=== PATIENT | female | born 1995 | race Caucasian/White ===

== ENCOUNTER → 2016-11-04 | Outpatient (CLI) | payer BC ==
[2016-11-04 09:48] LABS: HCT 37.5 % (34.0-46.0); HDW 2.58; HGB 13.1 gm/dL (11.4-16.0); MCH 28.8 pg (25.0-35.0); MCHC 34.9 g/dL (31.0-37.0); MCV 82.7 fL (80.0-100.0); Mean Platelet Volume 7.4; RBC 4.53 m/uL (3.80-5.40); RDW 12.4 % (11.5-15.5); WBC 8.8 k/uL (3.8-10.6)
--- NOTE | 2016-11-04 09:50 | US ---
EXAMINATION TYPE: US OB <=14 wks transvag DATE OF EXAM: 11/04/2016 8:41 AM COMPARISON: NONE CLINICAL HISTORY: Z36 CONFIRM DATES. UNSURE DATES EXAM PERFORMED: Transvaginal (TV) and Transabdominal (TA) EXAM MEASUREMENTS: GESTATIONAL AGE / DATING Physician Established: not established Dates by LMP: (11 weeks/6 days) EDC: 05/20/2017 Dates by First Scan: no prior Dates by Current Scan for: (11 weeks/3 days) EDC: 05/23/2017 MATERNAL ANATOMY Uterus: 15.8 x 5.3 x 8.2 cm Right Ovary: 2.9 x 1.4 x 1.7 cm Left Ovary: 3.1 x 1.7 x 2.2 cm Post CDS / Adnexa: wnl Presence of free fluid: no Presence of corpus luteal cyst: no Presence of subchorionic bleed: no GESTATION / SURVEY CRL: 4.4 (11 weeks/1 days) MSD: 4.9 (10 weeks/4 days) Yolk Sac (normal less than 6mm): not seen anterior placenta Heart Rate: 164 bpm Rhythm: Normal IUP: Viable IUP Date of LMP: 08/13/2016 Beta HcG (if available): NA TECHNOLOGIST IMPRESSION: viable IUP based on this examination, anterior placenta low lying IMPRESSION: VIABLE INTRAUTERINE GESTATION WITH A GESTATIONAL AGE OF 11 WEEKS 3 DAYS +/- 7 DAYS. ESTIMATED DATE OF CONFINEMENT BASED ON THIS EXAMINATION IS 05/23/2017. PLEASE NOTE THAT THE PLACENTA IS LOW-LYING AT THIS TIME. FURTHER FOLLOW-UP IN THE THIRD TRIMESTER WOU LD BE RECOMMENDED IN ORDER TO REASSESS PLACENTAL POSITIONING.
[2016-11-04 10:22] LABS: Glucose 94 mg/dL (74-99); Non-African American GFR(MDRD) >60 (>60 ml/min/1.73 sqM)
[2016-11-04 10:41] LABS: Hepatitis B Surface Ag Index 0.07
[2016-11-05 04:46] LABS: Toxoplasma Antibody (IgG) <3.0 IU/mL (<7.2)
[2016-11-06 07:25] LABS: HIV-1/HIV-2 Ab Screen NONREAC (NON REAC)
== END | disposition home or self-care (01) ==
LOC: RADUSWWP 08:06
PROVIDERS: ATTEND Obstetrics & Gynecology
DX: O44.41 Low lying placenta NOS or without hemorrhage, first trimester (principal); Z3A.11 11 weeks gestation of pregnancy
CPT/HCPCS: 36415; 76801; 76817; 82565; 82947; 85027; 86762; 86777; 86778; 86780; 86850; 86900; 86901; 87340; 87389

== ENCOUNTER → 2016-12-24 | Outpatient (CLI) | payer BC ==
--- NOTE | 2016-12-24 11:33 | US ---
EXAMINATION TYPE: US OB anatomy transabd DATE OF EXAM: 12/24/2016 10:25 AM COMPARISON: US in PACS HISTORY: Large for Dates O36.62X0 Anatomy Scan TECHNIQUE: Transabdominal (TA) EXAM MEASUREMENTS: GESTATIONAL AGE / DATING Physician Established: (19 weeks/0 days) EDC: 05/20/2017 Dates by LMP: (19 weeks/0 days) EDC: 05/20/2017 Dates by First Scan: (18 weeks/4 days) EDC: 05/23/2017 Dates by Current Scan for: (18 weeks/2 days) EDC: 05/25/2017 SURVEY IUP: Single PLACENTA: Anterior PREVIA: Marginal MITESH: 11.1 cm Normal CERVICAL LENGTH (transabdominal: norm > 3.0cm): 3.9 cm BIOMETRY PRESENTATION: Vertex BPD: 4.0 cm 18 weeks / 1 days HC: 15.5 cm 18 weeks / 3 days AC: 12.9 cm 18 weeks / 3 days FL: 2.7 cm 18 weeks / 2 days ESTIMATED WEIGHT IN GRAMS: 236 grams ESTIMATED WEIGHT IN LBS/OZS: 0 lbs. 8 oz. WEIGHT PERCENTAGE BASED ON ESTABLISHED DATE: 14.9 % HC/AC: 1.21 Normal FL/AC: 21 Normal HEART RATE: 139 bpm RHYTHM: Normal ANATOMY SEEN (within normal limits): * Lateral Vent (< 1 cm) 0.6 cm * Cisterna Magna (< 1.1 cm) 0.4 cm * Nuchal Fold (< 0.6 cm) 0.3 cm * Cerebellum (varies with age) 1.9 cm Choroid Plexus (bilateral) Midline Falx Cavus Septi Pellucidi Four Chamber Heart Outflow tracts: LVOT/RVOT Stomach Situs Nose / Lips Diaphragm Kidneys (bilateral) Bladder Cord Insert Three Vessel Cord Longitudinal Spine Transverse Spine Arms (bilateral) Legs (bilateral) MATERNAL WALL MEASUREMENT: 5.1 cm from skin to anterior uterine wall (if exam limited due to body waite bitus). Single, viable IUP, Large pt body habitus, Anatomy visualized appeared wnl IMPRESSION: LEGER FETUS PRESENT IN A VERTEX LIE WITH A GESTATIONAL AGE OF 18 WEEKS 2 DAYS +/- 12 DAYS. ESTIMA MAGED DATE OF CONFINEMENT BASED ON THIS EXAMINATION IS 05/25/2017.
== END | disposition home or self-care (01) ==
LOC: RADUSWWP 09:40
PROVIDERS: ATTEND Obstetrics & Gynecology
DX: O36.62X0 Maternal care for excessive fetal growth, second trimester, not applicable or unspecified (principal); Z3A.18 18 weeks gestation of pregnancy
CPT/HCPCS: 76811

== ENCOUNTER → 2017-02-14 | Outpatient (CLI) | payer BC ==
[2017-02-14 10:00] LABS: CH 28.2; CHCM 32.9; HCT 34.4 % (34.0-46.0); HDW 2.73; HGB 11.3 gm/dL (11.4-16.0); MCH 28.3 pg (25.0-35.0); MCHC 32.9 g/dL (31.0-37.0); MCV 86.1 fL (80.0-100.0); Mean Platelet Volume 6.8; RDW 13.6 % (11.5-15.5); WBC 8.8 k/uL (3.8-10.6)
== END | disposition home or self-care (01) ==
LOC: LABWHC1 08:27
PROVIDERS: ATTEND Obstetrics & Gynecology
DX: Z34.02 Encounter for supervision of normal first pregnancy, second trimester (principal); Z3A.00 Weeks of gestation of pregnancy not specified
CPT/HCPCS: 36415; 82950; 85027

== ENCOUNTER → 2017-02-22 | Outpatient (CLI) | payer BC | END | disposition home or self-care (01) | LOC: LABWHC1 07:32 | PROVIDERS: ATTEND Obstetrics & Gynecology | DX: O24.419 Gestational diabetes mellitus in pregnancy, unspecified control (principal); Z3A.00 Weeks of gestation of pregnancy not specified | CPT/HCPCS: 36415; 82951; 82952 ==

== ENCOUNTER → 2017-03-01 | Outpatient (CLI) | payer BC | END | disposition home or self-care (01) | LOC: LABWHC1 07:31 | PROVIDERS: ATTEND Obstetrics & Gynecology | DX: O99.810 Abnormal glucose complicating pregnancy (principal); Z3A.00 Weeks of gestation of pregnancy not specified | CPT/HCPCS: 36415; 82951; 82952 ==

== ENCOUNTER → 2017-03-08 | Outpatient (CLI) | payer BC | END | disposition home or self-care (01) | LOC: LABWHC1 14:06 | PROVIDERS: ATTEND Obstetrics & Gynecology | DX: O24.419 Gestational diabetes mellitus in pregnancy, unspecified control (principal); Z3A.00 Weeks of gestation of pregnancy not specified | CPT/HCPCS: 36415; 82947; 83036 ==

== ENCOUNTER 2017-05-13 06:00 | Inpatient (IN) | payer BC ==
[2017-05-13] MEDS ORDERED: METHYLERGONOVINE 0.2 MG/ML 1 ML AMP IM PRN (06:26)
[2017-05-13] MEDS ORDERED: CARBOPROST TROMETHAMINE 250 MCG/ML 1 ML AMP IM PRN (06:26)
[2017-05-13] MEDS ORDERED: LIDOCAINE 1% (PF) 10 MG/ML (30 ML SDV) SQ PRN (06:26)
[2017-05-13] MEDS ORDERED: OXYTOCIN 10 UNIT/ML 1 ML VIAL IM PRN (06:26)
[2017-05-13] MEDS ORDERED: TERBUTALINE 1 MG/ML VIAL SQ PRN (06:26)
[2017-05-13 06:33] LABS: Basophils % (A) 0 %; CH 29.5; CHCM 35.5; Eosinophils # (A) 0.3 k/uL (0-0.7); Eosinophils % (A) 3 %; HCT 37.4 % (34.0-46.0); HDW 3.02; HGB 12.8 gm/dL (11.4-16.0); Luc # (Auto) 0.26; Luc % (Auto) 3; Lymphocytes % (A) 21 %; MCH 28.6 pg (25.0-35.0); MCHC 34.2 g/dL (31.0-37.0); MCV 83.7 fL (80.0-100.0); Mean Platelet Volume 7.7; Monocytes # (A) 0.6 k/uL (0-1.0); Monocytes % (A) 7 %; Neutrophils # (A) 6.2 k/uL (1.3-7.7); Neutrophils % (A) 66 %; RBC 4.46 m/uL (3.80-5.40); RDW 14.7 % (11.5-15.5); WBC 9.4 k/uL (3.8-10.6); WBC (Perox) 9.18
[2017-05-13] MEDS: OXYTOCIN 20 UNITS/1000 ML NS 1,000 ML IV SCH (06:36)
[2017-05-13] MEDS: LACTATED RINGERS 1,000 ML IV SCH ×2 (06:40→11:08)
[2017-05-13 06:51] VITALS: BMI 43.9
[2017-05-13] MEDS ORDERED: BUPIVACAINE (PF) 0.25% 30 ML VIAL ONE (10:12)
[2017-05-13] MEDS ORDERED: fentaNYL (PF) 50 MCG/ML 5 ML AMP ONE (10:12)
[2017-05-13] MEDS ORDERED: SODIUM CHLORIDE 0.9% 100 ML BAG ONE (10:12)
[2017-05-13] MEDS ORDERED: ZOLPIDEM 5 MG TAB PO PRN (13:36)
[2017-05-13] MEDS ORDERED: HYDROCORTISONE 2.5% RECTAL CREAM 30 GM TUBE RECTAL PRN (13:36)
[2017-05-13] MEDS ORDERED: WITCH HAZEL 1 EACH MED..PAD TOPICAL PRN (13:36)
[2017-05-13] MEDS ORDERED: diphenhydrAMINE 50 MG CAP PO PRN (13:36)
[2017-05-13] MEDS ORDERED: LANOLIN CREAM 5 GM TUBE TOPICAL PRN (13:36)
[2017-05-13] MEDS ORDERED: Acetaminophen-Codeine 300-30mg TAB PO PRN (13:36)
[2017-05-13] MEDS ORDERED: SIMETHICONE 80 MG CHEWABLE PO PRN (13:36)
[2017-05-13] MEDS ORDERED: diphenhydrAMINE 25 MG CAP PO PRN (13:36)
[2017-05-13] MEDS ORDERED: diphenhydrAMINE 50 MG/ML 1 ML VIAL IVP PRN ×2 (13:36)
[2017-05-13] MEDS ORDERED: BENZOCAINE/MENTHOL SPRAY 1 GM/SPRAY AEROSOL TOPICAL PRN (13:36)
[2017-05-13] MEDS ORDERED: ACETAMINOPHEN TAB 325 MG TAB PO PRN (13:36)
[2017-05-13] MEDS ORDERED: OXYTOCIN 20 UNITS/1000 ML NS 1,000 ML IV SCH (13:45)
[2017-05-13] MEDS: SENNOSIDES-DOCUSATE SODIUM 1 EACH TAB PO SCH (20:42)
[2017-05-13] MEDS: IBUPROFEN 600 MG TAB PO PRN (20:43)
--- NOTE | 2017-05-14 00:24 | P.HPOB ---
History of Present Illness H&P Date: 05/13/17 Chief Complaint: Induction of labor 22 year old presents at 39 weeks for induction of labor. Cervix is 6 cm dilated, 70% effaced, 0 station. She got dimple. heart tones 140- 145 with moderate variability and reactive. Review of Systems All systems: negative Constitutional: Denies chills, Denies fever Eyes: denies blurred vision, denies pain Ears, nose, mouth and throat: Denies headache, Denies sore throat Cardiovascular: Denies chest pain, Denies shortness of breath Respiratory: Denies cough Gastrointestinal: Denies abdominal pain, Denies diarrhea, Denies nausea, Denies vomiting Genitourinary: Denies dysuria, Denies hematuria Musculoskeletal: Denies myalgias Integumentary: Denies pruritus, Denies rash Neurological: Denies numbness, Denies weakness Psychiatric: Denies anxiety, Denies depression Endocrine: Denies fatigue, Denies weight change Past Medical History Past Medical History: No Reported History Additional Past Medical History / Comment(s): Obstetric history: This is her first . She's had care with me since 10 weeks gestation. Blood type B positive, antibodies negative, rubella nonimmune, treponema antibody negative, hepatitis B negative, HIV negative, toxoplasmosis negative. Abnormal 1 hour, normal hemoglobin A1c and normal blood sugars as she was unable to keep three-hour Glucola down. GBS is negative. History of Any Multi-Drug Resistant Organisms: None Reported Past Surgical History: Tonsillectomy Additional Past Surgical History / Comment(s): eye surgery (cyst removal) Past Anesthesia/Blood Transfusion Reactions: No Reported Reaction Past Psychological History: No Psychological Hx Reported Smoking Status: Never smoker Past Alcohol Use History: None Reported Past Drug Use History: None Reported - Past Family History Mother Family Medical History: No Reported History Medications and Allergies Home Medications Medication Instructions Recorded Confirmed Type Loratadine [Claritin] 10 mg PO PRN 05/13/17 History Pnv,Calcium 72/Iron/Folic Acid 1 tab PO DAILY 05/13/17 05/13/17 History [ Plus Tablet] Allergies Allergy/AdvReac Type Severity Reaction Status Date / Time amoxicillin [Amoxicillin] Allergy Unknown Verified 05/13/17 06:23 clindamycin Allergy Anaphylaxis Verified 05/13/17 06:23 Penicillins Allergy Unknown Verified 05/13/17 06:23 sulfamethoxazole Allergy Rash/Hives Verified 05/13/17 06:23 [From Bactrim] trimethoprim [From Bactrim] Allergy Rash/Hives Verified 05/13/17 06:23 Exam Osteopathic Statement: *. No significant issues noted on an osteopathic structural exam other than those noted in the History and Physical/Consult. - Vital Signs Vital signs: Vital Signs Temp Pulse Resp BP Pulse Ox 05/13/17 20:00 98.2 F 82 16 115/65 05/13/17 15:43 97.5 F L 75 16 117/64 05/13/17 15:13 98.2 F 88 16 115/62 05/13/17 14:43 81 16 113/63 05/13/17 14:28 98.7 F 80 16 105/57 05/13/17 14:13 90 16 109/56 05/13/17 13:58 81 16 114/60 05/13/17 13:43 97.2 F L 106 H 16 131/73 05/13/17 06:42 96.1 F L 97 18 133/78 97 Intake and Output 05/13/17 05/13/17 05/14/17 14:59 22:59 06:59 Output Total 150 Balance -150 Output: Estimated Blood Loss 150 Other: # Voids 1 1 Heart: Regular rate and rhythm Lungs: Clear to auscultation bilaterally Abdomen: Soft, nontender Extremities: Negative Homans sign Results Result Diagrams: 05/13/17 06:25 Assessment and Plan (1) Normal labor Status: Acute Plan: 1. Admit to family place 2. Pitocin and amniotomy for induction of labor 3. Anticipate normal vaginal delivery
--- NOTE | 2017-05-14 00:27 | P.PROBDLV ---
Vaginal Delivery Note - . Vaginal Delivery Note: 22-year-old presents at 39 weeks' gestation for induction of labor. Her cervix is 6 cm dilated, 70% effaced, 0 station. She's not dimple. heart tones 140 145 with moderate variability and reactive. Pitocin was started. Amniotomy was performed at 9:02 AM and clear fluid noted. She did become uncomfortable and got an epidural. Her cervix was completely dilated at 12:35 PM. She pushed, delivered a viable female over intact perineum under epidural anesthesia at 1319. Head delivered OA, anterior shoulder which was the left shoulder delivered gentle downward traction followed by posterior shoulder and rest of body. Nose and mouth bulb suctioned, cord clamped and cut , infant placed on mother's abdomen. Apgars 9, 9, weight 7 lbs. 4 oz. Placenta delivered spontaneously, intact with three-vessel cord at 1323. Vagina , cervix, and perineum were inspected. First-degree midline laceration was repaired with 3-0 Vicryl. Estimated blood loss 150 mL. Mother and baby in stable condition.
[2017-05-14] MEDS: Acetaminophen-Codeine 300-30mg TAB PO PRN (02:17)
--- NOTE | 2017-05-14 09:25 | P.PNOBGVD ---
Subjective - Subjective Principal diagnosis: S/P NVD PPD #1 Interval history: Pt seen and examined denies nausea, vomiting, chest pain, shortness of breath or calf pain. Patient reports: Reports appetite normal, Reports voiding normally, Reports pain well controlled, Reports ambulating normally : doing well Objective - Latest Vital Signs Latest vital signs: Vital Signs Temp Pulse Resp BP 05/14/17 00:00 98.6 F 83 16 117/69 05/13/17 20:00 98.2 F 82 16 115/65 05/13/17 15:43 97.5 F L 75 16 117/64 05/13/17 15:13 98.2 F 88 16 115/62 05/13/17 14:43 81 16 113/63 05/13/17 14:28 98.7 F 80 16 105/57 05/13/17 14:13 90 16 109/56 05/13/17 13:58 81 16 114/60 05/13/17 13:43 97.2 F L 106 H 16 131/73 Intake and Output 05/13/17 05/14/17 05/14/17 22:59 06:59 14:59 Other: # Voids 1 1 - Exam Lungs: bilateral: normal Chest: Normal S1, Normal S2 Extremities: Present: normal Abdomen: Present: normal appearance, soft Uterus: Present: normal, firm Assessment and Plan (1) Normal labor Current Visit: Yes Status: Resolved Code(s): O80 - ENCOUNTER FOR FULL-TERM UNCOMPLICATED DELIVERY; Z37.9 - OUTCOME OF DELIVERY, UNSPECIFIED SNOMED Code(s ): 36043027 (2) Normal vaginal delivery Narrative/Plan: 1. cont pp care Current Visit: Yes Status: Acute Code(s): O80 - ENCOUNTER FOR FULL-TERM UNCOMPLICATED DELIVERY SNOMED Code(s): 63220152
[2017-05-14] MEDS: IBUPROFEN 600 MG TAB PO PRN ×2 (09:29→17:55)
[2017-05-14] MEDS: SENNOSIDES-DOCUSATE SODIUM 1 EACH TAB PO SCH ×2 (11:50→20:17)
[2017-05-15] MEDS: Acetaminophen-Codeine 300-30mg TAB PO PRN (00:16)
[2017-05-15] MEDS: OXYTOCIN 20 UNITS/1000 ML NS 1,000 ML IV SCH (01:41)
[2017-05-15] MEDS: SENNOSIDES-DOCUSATE SODIUM 1 EACH TAB PO SCH (09:11)
[2017-05-15 09:38] VITALS: BP 122/58; PULSE 89; RESP 18; TEMP 97.6
[2017-05-15] MEDS ORDERED: MEASLES-MUMPS-RUBELLA VACC/PF 12,500 UNIT/0.5 ML VIAL SQ ONE (09:49)
--- NOTE | 2017-05-15 10:11 | P.DS ---
Providers Date of admission: 05/13/17 06:07 Expected date of discharge: 05/15/17 Attending physician: Gloria Oliver Primary care physician: Stated None - Discharge Diagnosis(es) (1) Normal labor Current Visit: Yes Status: Resolved (2) Normal vaginal delivery Current Visit: Yes Status: Acute Hospital Course: Patient presented for induction of labor. She underwent normal vaginal delivery. Her course was uncomplicated. She denies nausea, vomiting , chest pain, shortness of breath or calf pain. She is ambulating and voiding without difficulty and tolerating regular diet. She'll be discharged home day #2 in stable condition to follow-up with me in 6 weeks. Plan - Discharge Summary New Discharge Prescriptions: No Action Pnv,Calcium 72/Iron/Folic Acid [ Plus Tablet] 1 tab PO DAILY Loratadine [Claritin] 10 mg PO PRN PRN Reason: Allergy Symptoms Discharge Medication List Loratadine [Claritin] 10 mg PO PRN 05/13/17 [History] Pnv,Calcium 72/Iron/Folic Acid [ Plus Tablet] 1 tab PO DAILY 05/13/17 [ History] Follow up Appointment(s)/Referral(s): Gloria Oliver DO [Doctor of Osteopathic Medicine] - 6 Weeks Discharge Disposition: HOME SELF-CARE
== END 2017-05-15 12:25 | disposition home or self-care (01) | DRG 775 ==
LOC: 4FBP 06:07
PROVIDERS: ADMIT Obstetrics & Gynecology; ATTEND Obstetrics & Gynecology
PROC: 3E0R3CZ (ICD-10-PCS; principal; 2017-05-13)
PROC: 0HQ9XZZ Repair Perineum Skin, External Approach (ICD-10-PCS; principal; 2017-05-13)
PROC: 10E0XZZ Delivery of Products of Conception, External Approach (ICD-10-PCS; principal; 2017-05-13)
PROC: 00HU33Z Insertion of Infusion Device into Spinal Canal, Percutaneous Approach (ICD-10-PCS; principal; 2017-05-13)
PROC: 10907ZC Drainage of Amniotic Fluid, Therapeutic from Products of Conception, Via Natural or Artificial Opening (ICD-10-PCS; principal; 2017-05-13)
PROC: 3E033VJ Introduction of Other Hormone into Peripheral Vein, Percutaneous Approach (ICD-10-PCS; principal; 2017-05-13)
DX: O70.0 First degree perineal laceration during delivery (principal); Z88.0 Allergy status to penicillin; Z37.0 Single live birth; Z3A.39 39 weeks gestation of pregnancy; Z88.1 Allergy status to other antibiotic agents; Z88.2 Allergy status to sulfonamides
CPT/HCPCS: 85025; 88307; 90707

== ENCOUNTER 2022-05-19 06:07 | Inpatient (IN) | payer BC ==
[2022-05-19] MEDS: LACTATED RINGERS 1,000 ML IV SCH ×2 (06:15→17:21)
[2022-05-19] MEDS ORDERED: TERBUTALINE 1 MG/ML VIAL SQ PRN (06:25)
[2022-05-19] MEDS ORDERED: CARBOPROST TROMETHAMINE 250 MCG/ML 1 ML AMP IM PRN (06:25)
[2022-05-19] MEDS ORDERED: OXYTOCIN 10 UNIT/ML 1 ML VIAL IM PRN (06:25)
[2022-05-19] MEDS ORDERED: LIDOCAINE 0.5% (PF) 5 MG/ML (50 ML SDV) SQ PRN (06:25)
[2022-05-19] MEDS ORDERED: METHYLERGONOVINE 0.2 MG/ML 1 ML AMP IM PRN (06:25)
[2022-05-19] MEDS ORDERED: OXYTOCIN 30 UNITS/500 ML NS 30 UNIT in SALINE 1 500ML.BAG IV SCH (06:30)
--- NOTE | 2022-05-19 07:34 | P.HPOB ---
History of Present Illness H&P Date: 05/19/22 Chief Complaint: Induction of labor 27 year old presents at 39 weeks 2 days for induction of labor. Her cervix is 6-7/70/-1. She is dimple every 5-10 minutes. The heart tones 130 with moderate variability and reactive. Review of Systems All systems: negative Constitutional: Denies chills, Denies fever Eyes: denies blurred vision, denies pain Ears, nose, mouth and throat: Denies headache, Denies sore throat Cardiovascular: Denies chest pain, Denies shortness of breath Respiratory: Denies cough Gastrointestinal: Denies abdominal pain, Denies diarrhea, Denies nausea, Denies vomiting Genitourinary: Denies dysuria, Denies hematuria Musculoskeletal: Denies myalgias Integumentary: Denies pruritus, Denies rash Neurological: Denies numbness, Denies weakness Psychiatric: Denies anxiety, Denies depression Endocrine: Denies fatigue, Denies weight change Past Medical History Past Medical History: No Reported History Additional Past Medical History / Comment(s): Obstetric history: First was a vaginal delivery. This is her second . She's had care with me since 10 weeks gestation. Blood type B positive, antibodies negative, rubella nonimmune, treponema antibody negative, hepatitis B negative, HIV negative, toxoplasmosis negative. GBS is negative. History of Any Multi-Drug Resistant Organisms: None Reported Past Surgical History: Tonsillectomy Additional Past Surgical History / Comment(s): eye surgery (cyst removal) Past Anesthesia/Blood Transfusion Reactions: No Reported Reaction Past Psychological History: No Psychological Hx Reported Smoking Status: Never smoker Past Alcohol Use History: None Reported Past Drug Use History: None Reported - Past Family History Mother Family Medical History: No Reported History Father Family Medical History: No Reported History Medications and Allergies Home Medications Medication Instructions Recorded Confirmed Type Pnv,Calcium 72/Iron/Folic Acid 1 tab PO DAILY 05/13/17 05/19/22 History [ Plus Tablet] Fexofenadine HCl [Lorie Allergy] 180 mg PO DAILY 05/19/22 05/19/22 History Allergies Allergy/AdvReac Type Severity Reaction Status Date / Time amoxicillin [Amoxicillin] Allergy Anaphylaxis Verified 05/19/22 06:20 clindamycin Allergy Anaphylaxis Verified 05/19/22 06:20 Penicillins Allergy Anaphylaxis Verified 05/19/22 06:20 sulfamethoxazole Allergy Rash/Hives Verified 05/19/22 06:20 [From Bactrim] trimethoprim [From Bactrim] Allergy Rash/Hives Verified 05/19/22 06:20 Exam Osteopathic Statement: *. No significant issues noted on an osteopathic structural exam other than those noted in the History and Physical/Consult. Vital Signs Temp Pulse Resp BP Pulse Ox 05/19/22 06:41 98.8 F 87 18 127/80 98 Intake and Output 05/18/22 05/19/22 05/19/22 22:59 06:59 14:59 Other: Weight 120.656 kg Heart: Regular rate and rhythm Lungs: Clear to auscultation bilaterally Abdomen: Soft, nontender Extremities: Negative Homans sign Assessment and Plan (1) Encounter for induction of labor Current Visit: Yes Status: Acute Code(s): Z34.90 - ENCNTR FOR SUPRVSN OF NORMAL , UNSP, UNSP TRIMESTER SNOMED Code(s): 389442450 (2) 39 weeks gestation of Current Visit: Yes Status: Acute Code(s): Z3A.39 - 39 WEEKS GESTATION OF SNOMED Code(s): 86529257 Plan: 1. Induction of labor with amniotomy and Pitocin 2. Anticipate normal vaginal delivery
[2022-05-19 07:46] LABS: Basophils # (A) 0.1 k/uL (0-0.2); Basophils % (A) 1 %; Eosinophils # (A) 0.2 k/uL (0-0.7); Eosinophils % (A) 2 %; HCT 36.8 % (34.0-46.0); HGB 11.9 gm/dL (11.4-16.0); Lymphocytes # (A) 1.6 k/uL (1.0-4.8); Lymphocytes % (A) 21 %; MCH 27.4 pg (25.0-35.0); MCHC 32.2 g/dL (31.0-37.0); MCV 85.1 fL (80.0-100.0); Mean Platelet Volume 8.5; Monocytes # (A) 0.6 k/uL (0-1.0); Monocytes % (A) 8 %; Neutrophils # (A) 5.1 k/uL (1.3-7.7); Neutrophils % (A) 67 %; Platelet Count 256 k/uL (150-450); RBC 4.33 m/uL (3.80-5.40); RDW 14.4 % (11.5-15.5); WBC 7.7 k/uL (3.8-10.6)
[2022-05-19] MEDS ORDERED: fentaNYL (PF) 50 MCG/ML 5 ML AMP ONE (08:23)
[2022-05-19] MEDS ORDERED: ROPIVACAINE 5MG/ML 20ML VIAL ONE (08:23)
[2022-05-19] MEDS ORDERED: SODIUM CHLORIDE 0.9% 100 ML BAG ONE (08:23)
[2022-05-19] MEDS ORDERED: diphenhydrAMINE 25 MG CAP PO PRN (12:25)
[2022-05-19] MEDS ORDERED: ZOLPIDEM 5 MG TAB PO PRN (12:25)
[2022-05-19] MEDS ORDERED: SIMETHICONE 80 MG CHEWABLE PO PRN (12:25)
[2022-05-19] MEDS ORDERED: BENZOCAINE/MENTHOL SPRAY 1 GM/SPRAY AEROSOL TOPICAL PRN (12:25)
[2022-05-19] MEDS ORDERED: diphenhydrAMINE 50 MG CAP PO PRN (12:25)
[2022-05-19] MEDS ORDERED: diphenhydrAMINE 50 MG/ML 1 ML VIAL IVP PRN ×2 (12:25)
[2022-05-19] MEDS ORDERED: HYDROCORTISONE 2.5% RECTAL CREAM 30 GM TUBE RECTAL PRN (12:25)
[2022-05-19] MEDS ORDERED: ACETAMINOPHEN TAB 325 MG TAB PO PRN (12:25)
[2022-05-19 13:49] VITALS: RESP 16
[2022-05-19] MEDS: IBUPROFEN 600 MG TAB PO PRN (16:46)
[2022-05-19] MEDS: SENNOSIDES-DOCUSATE SODIUM 1 EACH TAB PO SCH (20:16)
--- NOTE | 2022-05-20 00:38 | P.PROBDLV ---
Vaginal Delivery Note - . Vaginal Delivery Note: 27 year old presents at 39 weeks 2 days for induction of labor. Her cervix is 6-7/70/-1. She is dimple every 5-10 minutes. The heart tones 130 with moderate variability and reactive. Pitocin was started and amniotomy performed at 7:19 AM clear fluid noted. When she was uncomfortable she did get an epidural. Her cervix is completely dilated at 11:15. She pushed, delivered a viable male infant over intact perineum under epidural anesthesia at 12:10 PM. Head delivered OA, anterior shoulder delivered gentle downward guidance followed by posterior shoulder and rest of body. Nose and mouth bulb suctioned, cord clamped and cut, placed mother's abdomen. Apgars 9, 9, weight 7 lbs. 15 oz. Placenta delivered spontaneously, intact with three-vessel cord at 12:14 PM. Vagina, cervix, perineum inspected. No lacerations noted. Estimated blood loss 50 mL. Mother and baby in stable condition.
[2022-05-20] MEDS: IBUPROFEN 600 MG TAB PO PRN ×2 (01:07→11:06)
[2022-05-20 06:22] LABS: Basophils % (A) 1 %; Eosinophils # (A) 0.2 k/uL (0-0.7); Eosinophils % (A) 2 %; HCT 34.4 % (34.0-46.0); HGB 11.2 gm/dL (11.4-16.0); Lymphocytes # (A) 2.4 k/uL (1.0-4.8); Lymphocytes % (A) 24 %; MCH 27.9 pg (25.0-35.0); MCHC 32.6 g/dL (31.0-37.0); MCV 85.7 fL (80.0-100.0); Mean Platelet Volume 8.2; Monocytes # (A) 0.7 k/uL (0-1.0); Monocytes % (A) 8 %; Neutrophils # (A) 6.5 k/uL (1.3-7.7); Neutrophils % (A) 65 %; Platelet Count 239 k/uL (150-450); RBC 4.02 m/uL (3.80-5.40); RDW 14.3 % (11.5-15.5)
[2022-05-20] MEDS: SENNOSIDES-DOCUSATE SODIUM 1 EACH TAB PO SCH (08:08)
--- NOTE | 2022-05-20 09:28 | P.DS ---
Providers Date of admission: 05/19/22 06:07 Expected date of discharge: 05/20/22 Attending physician: Gloria Oliver Primary care physician: Stated None - Discharge Diagnosis(es) (1) Encounter for induction of labor Current Visit: Yes Status: Resolved (2) 39 weeks gestation of Current Visit: Yes Status: Resolved (3) Normal vaginal delivery Current Visit: No Status: Acute Hospital Course: patient presented for induction of labor. She underwent a normal vaginal delivery. course was uncomplicated. Denies nausea, vomiting, chest pain, shortness of breath or any calf pain. Patient will be discharged home day #1 in stable condition to follow-up with me in 6 weeks. Plan - Discharge Summary New Discharge Prescriptions: New Ibuprofen [Motrin] 600 mg PO Q6HR PRN #30 tab PRN Reason: Mild Pain (Scale 1 To 3) No Action Pnv,Calcium 72/Iron/Folic Acid [ Plus Tablet] 1 tab PO DAILY Fexofenadine HCl [Lorie Allergy] 180 mg PO DAILY Discharge Medication List Pnv,Calcium 72/Iron/Folic Acid [ Plus Tablet] 1 tab PO DAILY 05/13/17 [History] Fexofenadine HCl [Lorie Allergy] 180 mg PO DAILY 05/19/22 [History] Ibuprofen [Motrin] 600 mg PO Q6HR PRN #30 tab 05/20/22 [Rx] Follow up Appointment(s)/Referral(s): Gloria Oliver DO [Doctor of Osteopathic Medicine] - 6 Weeks Discharge Disposition: HOME SELF-CARE
[2022-05-20 10:05] VITALS: BP 116/74; PULSE 82; TEMP 98.6
== END 2022-05-20 14:10 | disposition home or self-care (01) | DRG 807 ==
LOC: 4FBP 06:07 → UNDOADMIN 06:07
PROVIDERS: ADMIT Obstetrics & Gynecology; ATTEND Obstetrics & Gynecology
PROC: 3E0R3NZ Introduction of Analgesics, Hypnotics, Sedatives into Spinal Canal, Percutaneous Approach (ICD-10-PCS; principal; 2022-05-19)
PROC: 00HU33Z Insertion of Infusion Device into Spinal Canal, Percutaneous Approach (ICD-10-PCS; principal; 2022-05-19)
PROC: 10E0XZZ Delivery of Products of Conception, External Approach (ICD-10-PCS; principal; 2022-05-19)
PROC: 3E033VJ Introduction of Other Hormone into Peripheral Vein, Percutaneous Approach (ICD-10-PCS; principal; 2022-05-19)
PROC: 10907ZC Drainage of Amniotic Fluid, Therapeutic from Products of Conception, Via Natural or Artificial Opening (ICD-10-PCS; principal; 2022-05-19)
DX: O80 Encounter for full-term uncomplicated delivery (principal); Z79.899 Other long term (current) drug therapy; Z88.1 Allergy status to other antibiotic agents; Z88.0 Allergy status to penicillin; Z88.2 Allergy status to sulfonamides; Z3A.39 39 weeks gestation of pregnancy; Z37.0 Single live birth
CPT/HCPCS: 85025; 86850; 86900; 86901